=== PATIENT | male | born 1965 | race Caucasian/White ===

== ENCOUNTER → 2017-01-06 | Outpatient (CLI) | payer MEDICARE ==
[~2017-01-06] MED LIST: AMPI3VIA IV; CYAN500T2 PO; ENOX40DI SQ; LACT1CAP46 PO; LOPE2CAP PO; MULT-1243 PO; POTA10TA16 PO; [UNRECOGNIZED DRUG - CODE] PO
== END ==
LOC: NWCC 10:50
PROVIDERS: ATTEND Surgery
DX: L89.524 Pressure ulcer of left ankle, stage 4 (principal); L89.310 Pressure ulcer of right buttock, unstageable; L89.890 Pressure ulcer of other site, unstageable; L89.320 Pressure ulcer of left buttock, unstageable; G82.21 Paraplegia, complete
CPT/HCPCS: 11042; 97605; A4406; A6209; A6210

== ENCOUNTER → 2017-01-20 | Outpatient (CLI) | payer MEDICARE | LOC: NWCC 10:51 | PROVIDERS: ATTEND Surgery | DX: L89.524 Pressure ulcer of left ankle, stage 4 (principal); L89.320 Pressure ulcer of left buttock, unstageable; L89.310 Pressure ulcer of right buttock, unstageable; L89.890 Pressure ulcer of other site, unstageable; G82.21 Paraplegia, complete | CPT/HCPCS: 17250; 97605; A6209; A6237; G0463 ==

== ENCOUNTER → 2017-01-27 | Outpatient (CLI) | payer MEDICARE | LOC: NWCC 09:51 | PROVIDERS: ATTEND Surgery | DX: L89.524 Pressure ulcer of left ankle, stage 4 (principal); L89.310 Pressure ulcer of right buttock, unstageable; L89.890 Pressure ulcer of other site, unstageable; L89.320 Pressure ulcer of left buttock, unstageable; G82.21 Paraplegia, complete | CPT/HCPCS: 11042; 97605; A4406; A6209; A6210; A6237; G0463 ==

== ENCOUNTER → 2017-02-10 | Outpatient (CLI) | payer MEDICARE | LOC: NWCC 10:35 | PROVIDERS: ATTEND Surgery | DX: L89.524 Pressure ulcer of left ankle, stage 4 (principal); L89.320 Pressure ulcer of left buttock, unstageable; L89.310 Pressure ulcer of right buttock, unstageable; L89.890 Pressure ulcer of other site, unstageable; G82.21 Paraplegia, complete | CPT/HCPCS: 11042; 97605; A6209; A6210; G0463 ==

== ENCOUNTER → 2017-02-24 | Outpatient (CLI) | payer MEDICARE ==
[~2017-02-24] MED LIST changes: +CALMOSEPTINE OINTMENT 3.5 G PACKET TOP ONE; +SALINE FLUSH 10ml SYRINGE ONE
== END ==
LOC: NWCC 11:01
PROVIDERS: ATTEND Surgery
DX: L89.524 Pressure ulcer of left ankle, stage 4 (principal); L89.320 Pressure ulcer of left buttock, unstageable; L89.310 Pressure ulcer of right buttock, unstageable; L89.890 Pressure ulcer of other site, unstageable; S70.221A Blister (nonthermal), right hip, initial encounter; G82.21 Paraplegia, complete; B96.89 Other specified bacterial agents as the cause of diseases classified elsewhere
CPT/HCPCS: 87070; 87075; 87077; 87186; 87205; 97605; A4406; A6021; A6209; A6210; A6237; A9270; G0463